=== PATIENT | male | born 1950 | race Hispanic/Latino ===

== ENCOUNTER 2018-12-09 09:48 | Outpatient (CLI) | payer MEDICARE ==
--- NOTE | 2018-12-09 11:46 | RAD ---
CHEST 2 VIEWS: Date: 12/09/18 HISTORY: Preop chest x-ray. COMPARISON: Radiograph dated 08/25/18. FINDINGS: The lungs are without focal confluent air space consolidation, pneumothorax, or effusion. Chronic sridhar vation left hemidiaphragm with left basilar atelectasis. Multiple midline sternotomy wires. Cardiac s ilhouette is similar. Old left mid clavicular fracture. IMPRESSION: Chronic findings. No acute abnormality. POS: [facility]
== END 2018-12-09 09:49 | disposition home or self-care (01) ==
LOC: NAV RAD 09:48
PROVIDERS: ATTEND Nurse Practitioner Family
DX: Z01.818 Encounter for other preprocedural examination (principal)
CPT/HCPCS: 71046

== ENCOUNTER 2021-05-13 08:28 | Emergency (ER) | payer MEDICARE ==
[2021-05-13] MEDS ORDERED: Acetaminophen/Codeine 30-300mg Tablet ONE (11:12)
== END 2021-05-13 11:32 | disposition home or self-care (01) ==
LOC: NAV ERS 08:28
DX: S20.212A Contusion of left front wall of thorax, initial encounter (principal); S20.222A Contusion of left back wall of thorax, initial encounter; I10 Essential (primary) hypertension; E78.5 Hyperlipidemia, unspecified; Z79.899 Other long term (current) drug therapy; W19.XXXA Unspecified fall, initial encounter
CPT/HCPCS: 94799

== ENCOUNTER 2022-05-12 09:20 | Emergency (ER) | payer MEDICARE | END 2022-05-12 10:21 | disposition home or self-care (01) | LOC: NAV ERS 09:20 | DX: S30.94XA Unspecified superficial injury of scrotum and testes, initial encounter (principal); E11.9 Type 2 diabetes mellitus without complications; I10 Essential (primary) hypertension; E78.5 Hyperlipidemia, unspecified; X58.XXXA Exposure to other specified factors, initial encounter | CPT/HCPCS: 99283 ==

== ENCOUNTER 2023-05-31 23:36 | Emergency (ER) | payer MEDICARE ==
[2023-06-01 00:21] LABS: #Eosinphils 0.1 thou/uL (0.0-0.7); #Monocytes 0.3 thou/uL (0.11-0.59); %Basophils 0.7 % (0.0-1.0); %Eosinophils 2.1 % (0.0-10.0); %Lymphocytes 17.8 % (21.0-51.0); %Monocytes 5.7 % (0.0-10.0); %Neutrophils 73.8 % (42.0-75.0); Hematocrit 37.4 % (42.0-52.0); Hemoglobin 11.9 g/dL (14.0-18.0); Mean Corpuscular HGB CONC 31.9 g/dL (32.0-36.0); Mean Corpuscular Hemoglobin 28.5 pg (27.0-31.0); Mean Corpuscular Volume 89.5 fl (78.0-98.0); Mean Platelet Volume 10.3 fL (7.4-10.4); Platelet Count 122 10x3/uL (130-400); RBC Distribution Width 11.2 % (11.5-14.5); Red Blood Cell (RBC) Count 4.18 mill/uL (4.70-6.10); White Blood Cell (WBC) Count 5.4 10x3/uL (4.8-10.8)
[2023-06-01] MEDS ORDERED: Benzonatate 100 MG CAP ONE (00:40)
[2023-06-01 00:56] LABS: BUN (Urea Nitrogen) 16 mg/dL (8.4-25.7); Bilirubin, Total 0.7 mg/dL (0.2-1.2); Calc. Creatinine Clearance 0 mL/min (70-130); Calcium 8.7 mg/dL (7.6-10.4); Carbon Dioxide 22 mmol/L (23-31); Chloride 103 mmol/L (98-107); Estimated GFR 72; Glucose 368 mg/dL (83-110); Protein, Total 6.5 g/dL (5.8-8.1); Sodium 133 mmol/L (136-145); Troponin I Less than 0.010 ng/mL (< 0.028)
[2023-06-01 00:57] LABS: ALT (SGPT) 80 U/L (8-55); AST (SGOT) 46 U/L (5-34); Albumin 3.8 g/dL (3.4-4.8); Alkaline Phosphatase 74 U/L (40-110); Globulin 2.7 g/dL (2.4-3.5)
== END 2023-06-01 01:50 | disposition home or self-care (01) ==
LOC: NAV ERS 23:36
DX: J06.9 Acute upper respiratory infection, unspecified (principal); E11.9 Type 2 diabetes mellitus without complications; I10 Essential (primary) hypertension; Z79.84 Long term (current) use of oral hypoglycemic drugs; Z79.899 Other long term (current) drug therapy
CPT/HCPCS: 71045; 80053; 84484; 85025; 87804; 93005

== ENCOUNTER 2023-09-02 06:00 | Emergency (ER) | payer MEDICARE ==
[2023-09-02 06:19] LABS: #Eosinphils 0.1 thou/uL (0.0-0.7); #Lymphocytes 1.3 thou/uL (1.20-3.40); #Monocytes 0.4 thou/uL (0.11-0.59); #Neutrophils 3.4 thou/uL (1.40-6.50); %Basophils 0.5 % (0.0-1.0); %Eosinophils 1.7 % (0.0-10.0); %Lymphocytes 24.9 % (21.0-51.0); %Neutrophils 64.9 % (42.0-75.0); Hematocrit 39.9 % (42.0-52.0); Hemoglobin 13.8 g/dL (14.0-18.0); Mean Corpuscular HGB CONC 34.6 g/dL (32.0-36.0); Mean Corpuscular Hemoglobin 30.8 pg (27.0-31.0); Mean Platelet Volume 11.2 fL (7.4-10.4); Platelet Count 154 10x3/uL (130-400); RBC Distribution Width 11.2 % (11.5-14.5); Red Blood Cell (RBC) Count 4.48 mill/uL (4.70-6.10); White Blood Cell (WBC) Count 5.3 10x3/uL (4.8-10.8)
[2023-09-02] MEDS ORDERED: Aspirin Chewable 81 MG TAB ONE (06:35)
[2023-09-02 06:36] LABS: ALT (SGPT) 41 U/L (8-55); AST (SGOT) 27 U/L (5-34); Albumin 4.2 g/dL (3.4-4.8); Alkaline Phosphatase 62 U/L (40-110); Anion Gap 12 mmol/L (10-20); BUN (Urea Nitrogen) 21 mg/dL (8.4-25.7); Calc. Creatinine Clearance 0 mL/min (70-130); Carbon Dioxide 25 mmol/L (23-31); Chloride 103 mmol/L (98-107); Digoxin Less than 0.15 ng/mL (0.8-2.0); Estimated GFR 77; Globulin 2.9 g/dL (2.4-3.5); Glucose 226 mg/dL (83-110); Lipase 15 U/L (8-78); Potassium 4.2 mmol/L (3.5-5.1); Protein, Total 7.1 g/dL (5.8-8.1); Sodium 136 mmol/L (136-145)
[2023-09-02 06:37] LABS: Troponin I 0.019 ng/mL (< 0.028)
[2023-09-02 07:09] LABS: INR-International Normal Ratio 1.1; Prothrombin Time 14.4 sec (12.0-14.7)
[2023-09-02 07:10] LABS: PTT 30.2 sec (22.9-36.1)
[2023-09-02] MEDS ORDERED: Nitroglycerin 0.4 MG TAB 1 EACH ONE (07:29)
[2023-09-02] MEDS ORDERED: Nitroglycerin 2% Ointment 1 INCH/1 GM Packet ONE (07:57)
[2023-09-02 09:38] LABS: Troponin I 0.031 ng/mL (< 0.028)
[2023-09-02 13:28] LABS: Troponin I 0.026 ng/mL (< 0.028)
== END 2023-09-02 13:42 | disposition short-term general hospital (02) ==
LOC: NAV ERS 06:00
DX: R42 Dizziness and giddiness (principal); R07.89 Other chest pain; I10 Essential (primary) hypertension; E11.9 Type 2 diabetes mellitus without complications; Z79.82 Long term (current) use of aspirin; Z79.84 Long term (current) use of oral hypoglycemic drugs; Z79.899 Other long term (current) drug therapy
CPT/HCPCS: 36416; 70450; 71045; 80053; 80162; 83690; 84484; 85025; 85610; 85730; 93005